=== PATIENT | female | born 1985 | race Caucasian/White ===

== ENCOUNTER 2018-09-26 09:24 | Emergency (ER) | payer MEDICARE, MEDICAID ==
[2018-09-26] MEDS ORDERED: Dexamethasone 10 MG/ML VIAL ONE (09:40)
== END 2018-09-26 09:45 | disposition home or self-care (01) ==
LOC: SCSER 09:24
DX: J06.9 Acute upper respiratory infection, unspecified (principal)
CPT/HCPCS: 99283; J1100

== ENCOUNTER 2018-10-08 11:10 | Outpatient (CLI) | payer MEDICARE, MEDICAID ==
--- NOTE | 2018-10-08 14:05 | MRI ---
MRI BRAIN: History: Altered mental status. Technique: Noncontrast MRI images of the brain obtained. FINDINGS: The brain is unremarkable. No evidence of intracranial masses, hemorrhages, strokes or contusions see n. Ventricles are of normal size. Moderate bilateral maxillary sinus mucosal thickening is seen. Mini mal bilateral ethmoid sinus mucosal thickening seen. The sphenoid sinuses on the right are well aerat ed. Minimal left sphenoid sinus mucosal thickening is seen. The frontal sinuses are not pneumatized. IMPRESSION: Mild mucosal sinus thickening with no evidence of acute intracranial abnormalities seen. POS: [facility]
== END 2018-10-08 11:11 | disposition home or self-care (01) ==
LOC: MRI 11:10
PROVIDERS: ATTEND Specialist
DX: R41.82 Altered mental status, unspecified (principal); J34.89 Other specified disorders of nose and nasal sinuses
CPT/HCPCS: 70551

== ENCOUNTER 2020-07-20 12:52 | Outpatient (CLI) | payer MEDICARE, MEDICAID ==
--- NOTE | 2020-07-20 13:24 | RAD ---
XR Hip Rt 2-3 View History: Hip pain Comparison: None. Findings: Numerous phleboliths in the pelvis. No acute fracture or malalignment. Small erosions of th e SI joints. Mild sclerosis of the pubic symphysis. Impression: Mild sacroiliitis and pubic symphysitis. No acute fracture or malalignment.
--- NOTE | 2020-07-20 13:36 | RAD ---
EXAM: XR Lumbar Spine 2 Or 3 View DATE: 07/20/2020 1:06 PM INDICATION: Low back pain COMPARISON: None. FINDING: There is grade 1 anterolisthesis of L4 and L5 without a visible pars defect. There is moder ate facet osteoarthrosis at L4-5 and L5-S1. There is mild disc degenerative disease at L3-4. Vertebral body heights are within normal limits. No acute fracture is evident. SI joints are normal a ppearing. Bowel gas pattern is nonspecific and nonobstructed. IMPRESSION:Mild lumbar spondylosis. Grade 1 anterolisthesis of L4 and L5.
== END 2020-07-20 12:53 | disposition home or self-care (01) ==
LOC: BICRAD 12:52
PROVIDERS: ATTEND Specialist
DX: M25.551 Pain in right hip (principal); M54.5 Low back pain; M47.816 Spondylosis without myelopathy or radiculopathy, lumbar region; M43.16 Spondylolisthesis, lumbar region; M46.1 Sacroiliitis, not elsewhere classified
CPT/HCPCS: 72100

== ENCOUNTER 2021-06-28 14:41 | Outpatient (CLI) | payer MEDICARE, OTHER, MEDICAID | END 2021-06-28 14:42 | disposition home or self-care (01) | LOC: BICRAD 14:41 | PROVIDERS: ATTEND Specialist | DX: S99.912A Unspecified injury of left ankle, initial encounter (principal) ==

== ENCOUNTER 2021-11-19 11:37 | Outpatient (CLI) | payer MEDICARE, MEDICAID | END 2021-11-19 11:38 | disposition home or self-care (01) | LOC: BICMAMMO 11:37 | PROVIDERS: ATTEND Specialist | DX: Z12.31 Encounter for screening mammogram for malignant neoplasm of breast (principal) | CPT/HCPCS: 77063; 77067 ==

== ENCOUNTER 2022-07-10 15:09 | Outpatient (CLI) | payer OTHER, MEDICARE, MEDICAID ==
[2022-07-10 16:40] LABS: #Basophils 0.1 10x3/uL (0.0-0.2); #Monocytes 0.3 10x3/uL (0.0-1.1); #Neutrophils 2.6 10x3/uL (1.5-8.4); %Basophils 0.9 % (0.0-2.0); %Eosinophils 0.2 % (0.0-6.0); %Lymphocytes 46.4 % (18.0-47.0); %Monocytes 5.8 % (0.0-10.0); %Neutrophils 46.5 % (40.0-75.0); Hemoglobin 13.8 g/dL (12.0-15.5); Mean Corpuscular HGB CONC 33.7 g/dL (32.0-36.0); Mean Corpuscular Hemoglobin 33.8 pg (27.0-33.0); Mean Corpuscular Volume 100.5 fl (81.6-98.3); Mean Platelet Volume 10.2 fl (7.4-10.4); Platelet Count 315 10x3/uL (150-450); RBC Distribution Width 13.8 % (11.5-14.5); Red Blood Cell (RBC) Count 4.08 10x6/uL (3.90-5.03); White Blood Cell (WBC) Count 5.6 10x3/uL (3.5-10.5)
[2022-07-10 16:56] LABS: ALT (SGPT) 28 U/L (8-55); AST (SGOT) 21 U/L (5-34); Albumin 4.1 g/dL (3.5-5.0); Alkaline Phosphatase 75 U/L (40-110); Anion Gap 14 mmol/L (10-20); BUN (Urea Nitrogen) 18 mg/dL (7.0-18.7); Bilirubin, Total 0.4 mg/dL (0.2-1.2); Calc. Creatinine Clearance 0 mL/min (70-130); Calcium 9.5 mg/dL (7.8-10.44); Carbon Dioxide 26 mmol/L (22-29); Chloride 102 mmol/L (98-107); Estimated GFR 68; Globulin 2.9 g/dL (2.4-3.5); Glucose 85 mg/dL (70-105); Potassium 4.7 mmol/L (3.5-5.1); Sodium 137 mmol/L (136-145)
== END 2022-07-10 15:10 | disposition home or self-care (01) ==
LOC: LABBT 15:09
PROVIDERS: ATTEND Surgery
DX: Z01.818 Encounter for other preprocedural examination (principal); L05.91 Pilonidal cyst without abscess
CPT/HCPCS: 80053; 85025; 93005; 93010

== ENCOUNTER 2023-04-25 08:57 | Outpatient (CLI) | payer MEDICARE, MEDICAID | END 2023-04-25 08:58 | disposition home or self-care (01) | LOC: BICMAMMO 08:57 | PROVIDERS: ATTEND Specialist | DX: Z12.31 Encounter for screening mammogram for malignant neoplasm of breast (principal) | CPT/HCPCS: 77063; 77067 ==